=== PATIENT | male | born 1980 | race Caucasian/White ===

== ENCOUNTER 2018-03-31 16:29 | Emergency (ER) | payer MEDICAID ==
[~2018-03-31] VITALS: Ht 175.3 cm; Wt 92.0 kg
[2018-03-31] MEDS: ondansetron 4mg rapidly disintigrating tab PO ONE (17:25)
[2018-03-31] MEDS: HYDROcodone/acetaminophen 10/325mg tab PO ONE (18:15)
[2018-03-31 19:43] VITALS: BP 122/78
== END 2018-03-31 19:44 | disposition home or self-care (01) ==
LOC: ER 16:30
DX: G44.009 Cluster headache syndrome, unspecified, not intractable (principal); R11.0 Nausea
CPT/HCPCS: 99283